=== PATIENT | male | born 1990 | race American Indian/Alaskan Native ===

== ENCOUNTER 2022-04-19 14:14 | Emergency (ER) | payer SELFPAY ==
[2022-04-19 15:46] VITALS: BP 117/74
[2022-04-19] MEDS ORDERED: IBUPROFEN 800 MG TAB PO ONE (16:51)
[2022-04-19] MEDS ORDERED: HYDROcodone/ACETAMINOPHEN 5-325 MG TAB PO ONE (16:51)
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
== END 2022-04-19 20:02 | disposition left against medical advice (07) ==
LOC: ED 14:14
DX: R06.00 Dyspnea, unspecified (principal); Z53.21 Procedure and treatment not carried out due to patient leaving prior to being seen by health care provider
CPT/HCPCS: 71045